=== PATIENT | female | born 1990 | race Hispanic/Latino ===

== ENCOUNTER 2018-07-19 08:42 | Emergency (ER) | payer BC, OTHER ==
[2018-07-19 08:46] VITALS: TEMP 98
--- NOTE | 2018-07-19 10:07 | ED PDOC ---
HPI: Back Time Seen by Provider: 07/19/18 09:23 Chief Complaint (Nursing): Back Pain Chief Complaint (Provider): Back Pain History Per: Patient History/Exam Limitations: no limitations Onset/Duration Of Symptoms: Days (x1) Current Symptoms Are (Timing): Still Present Additional Complaint(s): 27 year old female with no past medical history who is presenting to the ED for evaluation of back pain worsening with movement onset last night. Patient states that yesterday she was bent over to clean her cats litter and she felt something pop in her right lower back. She reports that around 2 am the pain became unbearable and she took some Advil with no relief of symptoms. Patient denies any urinary incontience, weakness or paresthesias. PMD: none provided Past Medical History Reviewed: Historical Data, Nursing Documentation, Vital Signs Vital Signs: Last Vital Signs Temp 98 F 07/19/18 08:45 Pulse 75 07/19/18 08:45 Resp 18 07/19/18 08:45 BP 120/81 07/19/18 08:45 Pulse Ox 100 07/19/18 08:45 - Medical History PMH: No Chronic Diseases Denies: Chronic Kidney Disease - Surgical History Surgical History: No Surg Hx - Family History Family History: States: Unknown Family Hx - Social History Current smoker - smoking cessation education provided: No Alcohol: None Drugs: Denies - Home Medications Home Medications: Ambulatory Orders Medication Instructions Recorded Ibuprofen [Motrin] 600 mg PO Q6H PRN #20 tab 07/19/18 - Allergies Allergies/Adverse Reactions: Allergies Allergy/AdvReac Type Severity Reaction Status Date / Time No Known Allergies Allergy Verified 07/19/18 09:01 Review of Systems ROS Statement: Except As Marked, All Systems Reviewed And Found Negative Constitutional: Negative for: Fever Genitourinary Female: Negative for: Incontinence Musculoskeletal: Positive for: Back Pain Neurological: Negative for: Weakness Physical Exam - Reviewed Nursing Documentation Reviewed: Yes Vital Signs Reviewed: Yes - Physical Exam Appears: Positive for: Non-toxic, No Acute Distress Head Exam: Positive for: ATRAUMATIC, NORMAL INSPECTION, NORMOCEPHALIC Skin: Positive for: Normal Color Eye Exam: Positive for: Normal appearance Neck: Positive for: Normal Cardiovascular/Chest: Positive for: Regular Rate, Rhythm. Negative for: Murmur Respiratory: Negative for: Respiratory Distress Gastrointestinal/Abdominal: Positive for: Normal Exam, Soft. Negative for: Tenderness Pelvic Exam: Positive for: Other Back: Positive for: Other (tenderness right lumbar paraspinal area , no hematoma, no spinal tenderness) Extremity: Positive for: Normal ROM. Negative for: Deformity, Swelling Neurologic/Psych: Positive for: Alert, community ambassador II-XII, Oriented, Gait (table). Negative for: Motor/Sensory Deficits, Aphasia, Facial Droop - ECG O2 Sat by Pulse Oximetry: 100 (RA) Pulse Ox Interpretation: Normal Medical Decision Making Medical Decision Making: Time: 9:52 Impression: strained back r/o fracture Plan: --Flexeril 10 mg PO --Toradol 30 mg IV --Zofran 4 mg IV --Urine [id number] --Urine --x-ray LS spine AP/LAT --Urinalysis LS Spine X-Ray: FINDINGS: BONES: Normal alignment. No listhesis. No fracture. Inferior thoracic spondylosis noted DISC SPACES: Unremarkable. OTHER FINDINGS: None. IMPRESSION: No fracture or subluxation appreciated. Incidental note of inferior thoracic spondylosis. 12:52 Patient is aware of urine results as well as xray results. instructed to follow up [facility] pcp for further workup, and possible MRI of back. Scribe Attestation: Documented by Jessica Vilchis, acting as a scribe for Nicko Blankenship MD. Provider Scribe Attestation: All medical record entries made by the Scribe were at my direction and personally dictated by me. I have reviewed the chart and agree that the record accurately reflects my personal performance of the history, physical exam, medical decision making, and the department course for this patient. I have also personally directed, reviewed, and agree with the discharge instructions and disposition. Disposition - Clinical Impression Clinical Impression: Acute back pain - Patient ED Disposition Is Patient to be Admitted: No Counseled Patient/Family Regarding: Studies Performed, Diagnosis, Need For Followup - Disposition Referrals: Oli Castaneda MD [Medical Doctor] - Disposition: Routine/Home Disposition Time: 13:15 Condition: IMPROVED Additional Instructions: follow up with your primary doctor or orthopedist for further workup including MRI of back return to the ED with any worsening or concerning symptoms Prescriptions: Ibuprofen [Motrin] 600 mg PO Q6H PRN #20 tab PRN Reason: Pain, Moderate (4-7) Instructions: Low Back Pain (DC) Forms: itembase (Georgian)
--- NOTE | 2018-07-19 11:24 | RAD ---
Date of service: 07/19/2018 PROCEDURE: Radiographs of the Lumbar Spine. HISTORY: lower back pain, sp strain COMPARISON: No prior. FINDINGS: BONES: Normal alignment. No listhesis. No fracture. Inferior thoracic spondylosis noted DISC SPACES: Unremarkable. OTHER FINDINGS: None. IMPRESSION: No fracture or subluxation appreciated. Incidental note of inferior thoracic spondylosis.
[2018-07-19 11:33] LABS: SQUAMOUS EPITHIAL 6 /hpf (0-5); URINE BILIRUBIN NEGATIVE (NEGATIVE); URINE BLOOD SMALL (NEGATIVE); URINE CLARITY SLIGHTY-CLOUDY (Clear); URINE COLOR YELLOW (YELLOW); URINE GLUCOSE (UA) NEG (NEGATIVE); URINE LEUKOCYTE ESTERASE NEG Leu/uL (Negative); URINE PROTEIN 30 mg/dL (NEGATIVE); URINE UROBILINOGEN 0.2-1.0 mg/dL (0.2-1.0)
[2018-07-19 13:15] VITALS: BP 110/70; PULSE 74; RESP 20
[2018-07-20 18:34] VITALS: O2SAT 100
== END 2018-07-19 13:15 | disposition home or self-care (01) ==
LOC: H.ER 08:42
DX: M54.9 Dorsalgia, unspecified (principal)
CPT/HCPCS: 72100; 81003; 81025; 87086; 96374; 96375; 99284; J1885; J2405